=== PATIENT | female | born 1990 | race Two or more races ===

== ENCOUNTER 2017-09-21 15:18 | Inpatient (IN) | payer BC ==
[2017-09-21 17:54] LABS: ADD MAN DIFF? NO
[2017-09-21 17:58] LABS: BASOPHILS % 0.3 % (0.0-2.0); EOSINOPHILS # 0.1 10^3/ul (0.0-0.5); EOSINOPHILS % 0.5 % (0.0-7.0); HEMATOCRIT 35.3 % (37.0-47.0); LYMPHOCYTES # 3.2 10^3/ul (0.8-2.9); LYMPHOCYTES % 31.3 % (15.0-51.0); MEAN CORPUSCULAR HEMOGLOBIN 24.8 pg (29.0-33.0); MEAN CORPUSCULAR HGB CONC 31.2 g/dl (32.0-37.0); MEAN CORPUSCULAR VOLUME 79.5 fl (82.0-101.0); MEAN PLATELET VOLUME 11.3 fl (7.4-10.4); MONOCYTE # 0.6 10^3/ul (0.3-0.9); MONOCYTES % 5.9 % (0.0-11.0); NEUTROPHIL # 6.3 10^3/ul (1.6-7.5); NEUTROPHILS % 61.8 % (39.0-77.0); PLATELET COUNT 279 10^3/UL (140-415); RED BLOOD COUNT 4.44 10^6/ul (4.20-5.40); RED CELL DISTRIBUTION WIDTH 16.6 % (11.5-14.5)
[2017-09-21 17:58] LABS: WHITE BLOOD COUNT 10.2 10^3/ul (4.8-10.8)
[2017-09-21] MEDS: LACTATED RINGER'S 1,000 ML IV (17:58)
[2017-09-21] MEDS: GENTAMICIN 80 MG/NS (PMX) 50 ML IVPB (18:00)
[2017-09-21] MEDS ORDERED: MISOPROSTOL 200 MCG TAB PR (18:00)
[2017-09-21] MEDS ORDERED: METHYLERGONOVINE 0.2 MG INJ IM (18:00)
[2017-09-21] MEDS ORDERED: CARBOPROST 250 MCG INJ IM (18:00)
[2017-09-21] MEDS ORDERED: OXYTOCIN 30 UNITS/LR 500 ML IV (18:00)
[2017-09-21 18:06] LABS: INR 0.94; PROTIME 12.7 Sec (11.9-14.9)
[2017-09-21 18:07] LABS: PARTIAL THROMBOPLASTIN TIME 22.7 Sec (25.0-35.0)
[2017-09-21 18:35] LABS: HEPATITIS B SURFACE ANTIGEN NEGATIVE (NEGATIVE)
[2017-09-21] MEDS ORDERED: CEFAZOLIN 2 GM/50 ML (PMX) 50 ML IVPB (19:46)
[2017-09-21] MEDS: CLINDAMYCIN 900 MG/D5W (PMX) 50 ML IV (19:50)
[2017-09-21] MEDS ORDERED: METOCLOPRAMIDE 10 MG INJ (20:28)
[2017-09-21] MEDS ORDERED: morphine SULFATE/PF (10 MG/10 ML) INJ (20:28)
[2017-09-21] MEDS ORDERED: FENTAnyl 50 MCG/ML VIAL (20:28)
[2017-09-21] MEDS ORDERED: OXYTOCIN 10 UNIT INJ (20:29)
[2017-09-21] MEDS ORDERED: BUPIVACAINE 0.75%/DEXT (SPINAL) 2 ML INJ (20:29)
[2017-09-21] MEDS ORDERED: TRIMETHOBENZAMIDE 100 MG/ML VIAL IM ×2 (21:30)
[2017-09-21] MEDS ORDERED: MIDAZOLAM 1 MG/ML 2 ML INJ IV (21:30)
[2017-09-21] MEDS ORDERED: OXYCODONE/ACETAMINOPHEN (5/325) TAB PO ×2 (21:30)
[2017-09-21] MEDS ORDERED: DIPHENHYDRAMINE 50 MG INJ IV (21:30)
[2017-09-21] MEDS ORDERED: ONDANSETRON 4 MG INJ IV ×2 (21:30)
[2017-09-21] MEDS ORDERED: NALOXONE (0.4 MG/ML) INJ IV (21:30)
[2017-09-21] MEDS ORDERED: morphine 2 MG INJ IV (21:30)
[2017-09-21] MEDS ORDERED: EPHEDrine SULFATE 50 MG/5 ML SYG IV (21:30)
[2017-09-21] MEDS ORDERED: FENTAnyl 50 MCG/ML VIAL IV ×3 (21:30)
[2017-09-21] MEDS ORDERED: hydrALAzine 20 MG INJ IV (21:30)
[2017-09-21] MEDS ORDERED: NALBUPHINE HCL (10 MG/1 ML) INJ IV (21:30)
[2017-09-21] MEDS ORDERED: HYDROmorphONE 1 MG/5 ML IV SYRINGE IV ×3 (21:30)
[2017-09-21] MEDS ORDERED: IPRATROPIUM (NEB) 0.5 MG/2.5 ML AMP HHN (21:30)
[2017-09-21] MEDS ORDERED: ALBUTEROL 0.083% (NEB) 2.5 MG/3 ML AMP HHN (21:30)
[2017-09-21] MEDS ORDERED: LABETALOL HCL 20MG INJ IV (21:30)
[2017-09-21 21:36] LABS: RAPID PLASMA REAGIN NONREACTIVE (NR)
[2017-09-21] MEDS: CEFAZOLIN 2 GM/50 ML (PMX) 50 ML IV (21:39)
[2017-09-21] MEDS: KETOROLAC 30 MG INJ IV (22:23)
[2017-09-21] MEDS: DIPHENHYDRAMINE 50 MG INJ IV (22:34)
[2017-09-21] MEDS: MEPERIDINE 25 MG INJ IV (22:43)
[2017-09-21] MEDS: morphine 2 MG INJ IV (23:31)
[2017-09-21] MEDS: OXYTOCIN 30 UNITS/LR 500 ML IV (23:35)
[2017-09-22] MEDS: OXYTOCIN 30 UNITS/LR 500 ML IV (01:07)
[2017-09-22] MEDS ORDERED: CARBOPROST 250 MCG INJ IM (01:30)
[2017-09-22] MEDS ORDERED: MISOPROSTOL 200 MCG TAB PR (01:30)
[2017-09-22] MEDS ORDERED: OXYTOCIN 30 UNITS/LR 500 ML IV (01:30)
[2017-09-22] MEDS ORDERED: METHYLERGONOVINE 0.2 MG INJ IM (01:30)
[2017-09-22] MEDS ORDERED: OXYCODONE/ACETAMINOPHEN (5/325) TAB PO (01:30)
[2017-09-22] MEDS: KETOROLAC 30 MG INJ IV ×3 (04:00→16:43)
[2017-09-22] MEDS: LACTATED RINGER'S 1,000 ML IV ×2 (09:42→17:07)
[2017-09-22 11:07] LABS: ADD MAN DIFF? NO
[2017-09-22 11:12] LABS: WHITE BLOOD COUNT 12.8 10^3/ul (4.8-10.8)
[2017-09-22 11:12] LABS: BASOPHILS % 0.2 % (0.0-2.0); EOSINOPHILS % 0.3 % (0.0-7.0); HEMATOCRIT 30.5 % (37.0-47.0); HEMOGLOBIN 9.6 g/dl (12.0-16.0); LYMPHOCYTES % 23.7 % (15.0-51.0); MEAN CORPUSCULAR HGB CONC 31.5 g/dl (32.0-37.0); MEAN CORPUSCULAR VOLUME 79.4 fl (82.0-101.0); MEAN PLATELET VOLUME 10.7 fl (7.4-10.4); MONOCYTE # 0.9 10^3/ul (0.3-0.9); MONOCYTES % 6.9 % (0.0-11.0); NEUTROPHIL # 8.8 10^3/ul (1.6-7.5); NEUTROPHILS % 68.5 % (39.0-77.0); PLATELET COUNT 214 10^3/UL (140-415); RED BLOOD COUNT 3.84 10^6/ul (4.20-5.40); RED CELL DISTRIBUTION WIDTH 16.4 % (11.5-14.5)
[2017-09-22] MEDS: morphine 2 MG INJ IV (12:49)
[2017-09-22] MEDS: SENNA/DOCUSATE NA (8.6MG/50MG) TAB PO (21:13)
[2017-09-22] MEDS: FERROUS SULFATE (EC) 325 MG TAB PO (21:13)
[2017-09-22] MEDS: LANOLIN 7 GM TUBE TOP (21:40)
[2017-09-22] MEDS: IBUPROFEN 800 MG TAB PO (21:40)
[2017-09-22] MEDS: OXYCODONE/ACETAMINOPHEN (5/325) TAB PO (23:11)
[2017-09-23] MEDS: LACTATED RINGER'S 1,000 ML IV ×3 (01:07→17:07)
[2017-09-23] MEDS: OXYCODONE/ACETAMINOPHEN (5/325) TAB PO ×5 (04:18→23:01)
[2017-09-23] MEDS: IBUPROFEN 800 MG TAB PO ×3 (06:10→21:44)
[2017-09-23] MEDS: SENNA/DOCUSATE NA (8.6MG/50MG) TAB PO ×2 (08:23→20:59)
[2017-09-23] MEDS: FERROUS SULFATE (EC) 325 MG TAB PO ×3 (08:23→20:59)
[2017-09-24] MEDS: IBUPROFEN 800 MG TAB PO ×3 (05:57→21:31)
[2017-09-24] MEDS: OXYCODONE/ACETAMINOPHEN (5/325) TAB PO ×4 (06:36→22:44)
[2017-09-24] MEDS: DIPHTH/TET/ACEL PERTUSS (ADULT) 0.5 ML VIAL IM* (09:00)
[2017-09-24] MEDS: SENNA/DOCUSATE NA (8.6MG/50MG) TAB PO ×2 (09:52→21:31)
[2017-09-24] MEDS: FERROUS SULFATE (EC) 325 MG TAB PO ×3 (09:52→21:31)
[2017-09-24] MEDS ORDERED: DIPHENHYDRAMINE 50 MG CAP PO (20:00)
[2017-09-24] MEDS ORDERED: HYDROCORTISONE 2.5% 20 GM CR TOP (21:00)
[2017-09-24] MEDS: HYDROCORTISONE 2.5% 20 GM CR TOP (22:14)
[2017-09-25] MEDS: OXYCODONE/ACETAMINOPHEN (5/325) TAB PO ×3 (04:49→14:12)
[2017-09-25] MEDS: IBUPROFEN 800 MG TAB PO ×2 (05:33→14:00)
[2017-09-25] MEDS: SENNA/DOCUSATE NA (8.6MG/50MG) TAB PO (09:01)
[2017-09-25] MEDS: HYDROCORTISONE 2.5% 20 GM CR TOP (09:01)
[2017-09-25] MEDS: FERROUS SULFATE (EC) 325 MG TAB PO ×2 (09:01→13:04)
== END 2017-09-25 16:20 | disposition home or self-care (01) | DRG 765 ==
LOC: L-D 15:18 → PP1 09-22 00:54 → L-D 16:54
PROVIDERS: Obstetrics & Gynecology
PROC: 10D00Z1 Extraction of Products of Conception, Low, Open Approach (ICD-10-PCS; principal; 2017-09-21 17:00)
DX: O34.219 Maternal care for unspecified type scar from previous cesarean delivery (principal); Z68.41 Body mass index [BMI] 40.0-44.9, adult; O99.214 Obesity complicating childbirth; E66.01 Morbid (severe) obesity due to excess calories; Z37.0 Single live birth; Z3A.39 39 weeks gestation of pregnancy
CPT/HCPCS: 82962; 85025; 85610; 85730; 86592; 86850; 86900; 86901; 87340; 99464